=== PATIENT | male | born 1990 | race African-American/Black ===

== ENCOUNTER 2024-11-29 17:35 | Emergency (ER) | payer SELFPAY ==
[2024-11-29] MEDS ORDERED: DIAZEPAM 5 MG TABLET ONE (18:26)
[2024-11-29] MEDS ORDERED: HYDROCODONE/APAP 5/325 MG TAB ONE (18:26)
--- NOTE | 2024-11-29 18:58 | RAD REPORT ---
EXAMINATION: LUMBAR SPINE 3 VIEWS CLINICAL INDICATION: Male, 34 years old. PAIN TECHNIQUE: AP, lateral, focused lateral lumbosacral views of the lumbar spine were obtained. [id number]. COMPARISON: No prior exam. FINDINGS: For purposes of this dictation, it is assumed that there are 5 lumbar type vertebral bodies. ALIGNMENT: There is normal alignment of the lumbar spine. BONES: Vertebral bodies are normal in height. No aggressive osseous lesions. DISCS: Disc heights are maintained. SOFT TISSUE: No soft tissue abnormalities. IMPRESSION: No acute lumbar spine abnormality.
--- NOTE | 2024-11-29 19:25 | EDPHYS ---
Physician Documentation [facility] Name: Sunny Reyes Age: 34 yrs Sex: Male : 1990 Arrival Date: 11/29/2024 Time: 17:35 Bed 9 Private MD: ED Physician Zachary Anderson HPI: 11/29 20:19 This 34 yrs old Black Male presents to ER via Ambulatory with complaints of Back Pain. ms3 20:19 Sunny Reyes, a 34-year-old male, presents to the emergency department with back pain ms3 that has been occurring over the past few days. Initially, he would wait for the pain to subside, but it has progressed, radiating down his right leg. The pain is described as a pinching sensation, particularly when walking, and feels as if something is overstretched. He reports the pain as a 10 out of 10 on the pain scale. He denies any fever, chills, or intravenous drug use. There is no history of diabetes. He does not report any numbness in the groin area, nor any issues with urinary or fecal incontinence.. Historical: - Allergies: 17:55 No Known Allergies; ko1 - Home Meds: 17:55 None [Active]; ko1 - PMHx: 17:55 None; ko1 - PSHx: 17:55 Operative procedure on knee; ko1 - Immunization history:: Adult Immunizations unknown. - Infectious Disease History:: Denies. - Social history:: Smoking status: Patient denies any tobacco usage or history of. ROS: 20:19 Constitutional: Negative for fever, and chills. Cardiovascular: Negative for chest ms3 pain, and palpitations. Respiratory: Negative for shortness of breath, cough, wheezing, and pleuritic chest pain, Abdomen/GI: Negative for abdominal pain, nausea, vomiting, diarrhea, and constipation, MS/Extremity: Negative for injury and deformity, Skin: Negative for injury, rash, and discoloration, 20:19 Back: Positive for Low back pain, Exam: 20:19 Constitutional: This is a well developed, well nourished patient who is awake, alert, ms3 and in no acute distress. Cardiovascular: Regular rate and rhythm with a normal S1 and S2. No gallops, murmurs, or rubs. Normal PMI, no JVD. No pulse deficits. Respiratory: Lungs have equal breath sounds bilaterally, clear to auscultation and percussion. No rales, rhonchi or wheezes noted. No increased work of breathing, no retractions or nasal flaring. Abdomen/GI: Soft, non-tender, with normal bowel sounds. No distension or tympany. No guarding or rebound. No evidence of tenderness throughout. 20:19 Back: pain, that is moderate, of the right low back, normal spinal alignment noted, CVA tenderness, is absent, muscle spasm, is appreciated in the right low back, Vital Signs: 17:52 BP 138 / 89; Pulse 93; Resp 17; Temp 97.2; Pulse Ox 100% ; ko1 19:45 BP 134 / 84; Pulse 90; Resp 20; Temp 98; Pulse Ox 100% on R/A; kj2 MDM: 18:07 Medical Screening Exam initiated ms3 20:19 Differential diagnosis: Neoplasm sprain, vertebral fracture. Data reviewed: vital ms3 signs, nurses notes, radiologic studies, and as a result, I will discharge patient. I considered the following discharge prescriptions or medication management in the emergency department Medications were administered in the Emergency Department. See MAR. Counseling: I had a detailed discussion with the patient and/or guardian regarding the historical points, exam findings, and any diagnostic results supporting the discharge/admit diagnosis, radiology results, the need for outpatient follow up, to return to the emergency department if symptoms worsen or persist or if there are any questions or concerns that arise at home. Special discussion: I discussed with the patient/guardian in detail that at this point there is no indication for admission to the hospital. It is understood, however, that if the symptoms persist or worsen the patient needs to return immediately for re-evaluation. ED course: Discussed lumbar spine x-rays with patient. On reevaluation patient's symptoms improved, patient is alert and oriented x 4, no apparent distress, nontoxic-appearing, speaking full sentences. Patient to follow-up with primary care physician in 2 to 3 days. Patient understands and agrees with plan. All questions were answered. Return precautions discussed include worsening symptoms, or any other concerns.. 11/29 18:07 Order name: Lumbar Spine (3 Views) XRAY; Complete Time: 19:21 ms3 Administered Medications: 18:52 Drug: HYDROcodone-acetaminophen PO 5 mg-325 mg 1 tabs PO once Route: PO; ph 19:02 Follow up: Response: No adverse reaction ph 18:52 Drug: Diazepam PO 5 mg PO once Route: PO; ph 19:02 Follow up: Response: No adverse reaction ph Disposition Summary: 11/29/24 19:24 Discharge Ordered Notes: Location: Home ms3 Condition: Stable ms3 Diagnosis - Sciatica, right side ms3 Followup: ms3 - With: Kiel Trejo DO - When: 2 - 3 days - Reason: Recheck today's complaints Discharge Instructions: - Sciatica ms3 - Discharge Summary Sheet ko1 Forms: - Medication Reconciliation Form ms3 - Antibiotic Education ms3 - Prescription Opioid Use ms3 - Patient Portal Instructions ms3 - Leadership Thank You Letter ms3 - Work release form ko1 Prescriptions: - Ibuprofen 600 mg Oral Tablet - take 1 tablet ORAL route every 6 hours As needed take with food; 30 tablet; ms3 Refills: 0, Product Selection Permitted - Cyclobenzaprine 10 mg Oral Tablet - take 1 tablet ORAL route every 8 hours As needed; 30 tablet; Refills: 0, ms3 Product Selection Permitted Signatures: Dispatcher [employer] Tamara Her, RN RN Zachary Anderson DO DO ms3 Gail Vaughan RN RN ko1
--- NOTE | 2024-11-29 19:25 | ER ---
Nurse's Notes [facility] Name: Sunny Reyes Age: 34 yrs Sex: Male : 1990 Arrival Date: 11/29/2024 Time: 17:35 Bed 9 Private MD: Diagnosis: Sciatica, right side Presentation: 11/29 17:52 Chief complaint: Patient states: lower back pain, going down right leg, started 2-3 ko1 days ago, getting worse. Coronavirus screen: At this time, the client does not indicate any symptoms associated with coronavirus-19. Ebola Screen: No symptoms or risks identified at this time. Initial Sepsis Screen: Does the patient meet any 2 criteria? No. Patient's initial sepsis screen is negative. Does the patient have a suspected source of infection? No. Patient's initial sepsis screen is negative. Risk Assessment: Do you want to hurt yourself or someone else? Patient reports no desire to harm self or others. Onset of symptoms is unknown. 17:52 Method Of Arrival: Ambulatory ko1 17:52 Acuity: MENG 4 ko1 Triage Assessment: 17:55 General: Appears in no apparent distress. Behavior is calm, cooperative, appropriate ko1 for age. Pain: Complains of pain in back and right leg. Musculoskeletal: Circulation, motion, and sensation intact. Capillary refill < 3 seconds, Range of motion: intact in all extremities. Historical: - Allergies: 17:55 No Known Allergies; ko1 - Home Meds: 17:55 None [Active]; ko1 - PMHx: 17:55 None; ko1 - PSHx: 17:55 Operative procedure on knee; ko1 - Immunization history:: Adult Immunizations unknown. - Infectious Disease History:: Denies. - Social history:: Smoking status: Patient denies any tobacco usage or history of. Screenin:53 [facility] ED Fall Risk Assessment (Adult) History of falling in the last 3 months, ph including since admission No falls in past 3 months (0 pts) Confusion or Disorientation No (0 pts) Intoxicated or Sedated No (0 pts) Impaired Gait No (0 pts) Mobility Assist Device Used No (0 pt) Altered Elimination No (0 pt) Score/Fall Risk Level 0 - 2 = Low Risk Oriented to surroundings, Maintained a safe environment, Hourly rounding (assess needs \T\ fall precautionary measures) done. Abuse screen: Denies threats or abuse. Denies injuries from another. Nutritional screening: No deficits noted. Tuberculosis screening: No symptoms or risk factors identified. Assessment: 18:52 General: Appears in no apparent distress. comfortable, well groomed, Behavior is calm, ph cooperative, appropriate for age. 18:52 Pain: Complains of pain in lumbar area Pain radiates to right low back. Pain: Pain ph radiates to medial aspect of right thigh. Neuro: Mallory Agitation-Sedation Scale (RASS): 0 - Alert and Calm Level of Consciousness is awake, alert, obeys commands, Oriented to person, place, time, situation. Cardiovascular: Capillary refill < 3 seconds in bilateral fingers Patient's skin is warm and dry. Respiratory: Airway is patent Respiratory effort is even, unlabored, Respiratory pattern is regular, symmetrical. Derm: Skin is pink, warm \T\ dry. 19:19 Reassessment: Patient appears in no apparent distress at this time. Patient and/or kj2 family updated on plan of care and expected duration. Pain level reassessed. Patient is alert, oriented x 3, equal unlabored respirations, skin warm/dry/pink. 19:45 Reassessment: Patient appears in no apparent distress at this time. Patient and/or kj2 family updated on plan of care and expected duration. Pain level reassessed. Patient is alert, oriented x 3, equal unlabored respirations, skin warm/dry/pink. Vital Signs: 17:52 BP 138 / 89; Pulse 93; Resp 17; Temp 97.2; Pulse Ox 100% ; ko1 19:45 BP 134 / 84; Pulse 90; Resp 20; Temp 98; Pulse Ox 100% on R/A; kj2 ED Course: 17:39 Patient arrived in ED. al6 17:52 Zachary Anderson DO is Attending Physician. ms3 17:55 Triage completed. ko1 17:55 Arm band placed on right wrist. Patient placed in waiting room, Patient notified of ko1 wait time. 18:22 Patient placed in an exam room, on a stretcher. ll1 18:23 Tamara Ochoa, RN is Primary Nurse. ph 18:47 Lumbar Spine (3 Views) XRAY In Process Unspecified. EDMS 18:54 Patient has correct armband on for positive identification. Call light in reach. Side ph rails up X 1. Door closed. Noise minimized. 19:24 Kiel Trejo DO is Referral Physician. ms3 19:46 Provided Education on: pain management techniques. kj2 19:47 No provider procedures requiring assistance completed. Patient did not have IV access kj2 during this emergency room visit. Administered Medications: 18:52 Drug: HYDROcodone-acetaminophen PO 5 mg-325 mg 1 tabs PO once Route: PO; ph 19:02 Follow up: Response: No adverse reaction ph 18:52 Drug: Diazepam PO 5 mg PO once Route: PO; ph 19:02 Follow up: Response: No adverse reaction ph Medication: 18:54 VIS not applicable for this client. ph Outcome: 19:24 Discharge ordered by MD. ms3 19:47 Discharged to home ambulatory, kj2 19:47 Condition: stable 19:47 Discharge instructions given to patient, Instructed on discharge instructions, follow up and referral plans. medication usage, Demonstrated understanding of instructions, follow-up care, medications, 19:53 Patient left the ED. kj2 Signatures: Dispatcher [employer] EDMS Tamara Ochoa, RN RN Berkley Veliz RN RN ll1 Zachary Anderson DO DO ms3 Gail Vaughan RN RN ko1 Vale Timmons RN RN kj2 Lashon Burnett
[2024-11-29 20:33] VITALS: O2SAT 100
[2024-11-29 20:34] VITALS: BP 134/84; TEMP 98
== END 2024-11-29 19:53 | disposition home or self-care (01) ==
LOC: ER 17:35
DX: M54.31 Sciatica, right side (principal)
CPT/HCPCS: 72100; 99283